=== PATIENT | female | born 1970 | race Caucasian/White ===

== ENCOUNTER 2021-05-15 00:18 | Day surgery (SDC) | payer OTHER, SELFPAY ==
[2021-05-03 14:28] VITALS: BMI 25.9
[2021-05-15 08:59] VITALS: BP 123/59; PULSE 90; RESP 16; TEMP 37.2; O2SAT 99; BMI 26.5
[2021-05-15] MEDS: LACTATED RINGERS 1,000 ML 150 ML IV CONT (09:11)
--- NOTE | 2021-05-15 09:15 | P.PNAN_ITS ---
Anes - Initial Pre Proc Eval Procedure: Operation Date: 05/15/21 10:00 Proposed Procedures p Screening Colonoscopy - Zoran Belcher MD Date/Time: 05/15/21 09:15 Surgeon: Zoran Belcher MD Pre Op Diagnosis: neoplasm screening Patient Data Age: 51 Gender: F Height: 1.7 m Weight: 76.9 kg Last Vital Signs Temp 37.2 C 05/15/21 08:59 Pulse 90 05/15/21 08:59 Resp 16 05/15/21 08:59 BP 123/59 L 05/15/21 08:59 Pulse Ox 99 05/15/21 08:59 Allergies Allergy/AdvReac Type Severity Reaction Status Date / Time No Known Allergies Allergy Verified 05/15/21 08:59 Home Medications Medication Instructions Recorded Confirmed Type estradiol 0.5 mg PO DAILY 05/03/21 05/03/21 History estradiol-norethindrone acet 1 tablet PO DAILY 05/03/21 05/03/21 History Patient hx anesthesia problems: none Family hx anesthesia problems: none Results Review: All pre-operative results and documents have been reviewed as part of the pre-operative evaluation. [facility] Past Medical History Medical History (Updated 05/15/21 @ 09:17 by Davin Palmer MD) Overweight Surgical History Surgical History (Updated 05/15/21 @ 09:17 by Davin Palmer MD) H/O: hysterectomy Social History Social History Smoking status: Former smoker Substance use type: does not use Spiritual care concerns: No Anes - Eval Final PreProcedure Day of Procedure 05/15/21 09:15 Patient weight: overweight Heart: regular rate and rhythm Lungs: clear to auscultation Airway: Mallampati scale class 1 Neurological: alert and oriented Last oral intake: >/= 8 hours ASA classification: II Emergent: no Anesthetic plan: proceed Anesthesia type and monitoring: general GIVS and standard monitoring Results Review: All pre-operative results and documents have been reviewed as part of the pre-operative evaluation. Informed Consent: The patient's anesthetic plan and its attendant risks and benefits were discussed with the patient/family/POA. Questions were solicited and answers provided to the satisfaction of the patient/family/POA.
--- NOTE | 2021-05-15 09:48 | PM.HPGS ---
History of Present Illness History of Present Illness Consent: Risks, benefits, and alternatives have been discussed and questions answered. Patient agrees to proceed with procedure. Chief complaint: neoplasm screening Narrative: Brenda Cullen is a 51 year old female here for first screening colonoscopy Review of Systems Constitutional: Constitutional: Denies headache(s) and Denies weakness Eyes: Eyes: Denies blurry vision ENT: Reports Normal hearing present, Denies headache(s) and Denies neck pain Cardiovascular: Cardiovascular: Denies chest pain and Denies dyspnea Respiratory: Respiratory: Denies dyspnea Gastrointestinal: Gastrointestinal: Reports no additional gastrointestinal complaints Genitourinary: Genitourinary: Denies dysuria Musculoskeletal: Musculoskeletal: Denies neck pain Integumentary/Breasts: Skin/Breast: Denies dry skin Neurologic: Reports Normal hearing present, Denies headache(s) and Denies weakness Psychiatric: Psychiatric: Denies anxiety Endocrine: Endocrine: Denies change in body appearance Hematologic/Lymphatic: Hematologic/Lymphatic: Denies easy bleeding Allergic/Immunologic: Allergic/Immunologic: Denies urticaria PMFSH Past Medical History Medical History (Updated 05/15/21 @ 09:48 by Zoran Belcher MD) Colon cancer screening Overweight Surgical History Surgical History (Updated 05/15/21 @ 09:17 by Davin Palmer MD) H/O: hysterectomy Social History Social History Smoking status: Former smoker Substance use type: does not use Spiritual care concerns: No Meds Home Medications and Allergies Home Medications Medication Instructions Recorded Confirmed Type estradiol 0.5 mg PO DAILY 05/03/21 05/03/21 History estradiol-norethindrone acet 1 tablet PO DAILY 05/03/21 05/03/21 History Allergies Allergy/AdvReac Type Severity Reaction Status Date / Time No Known Allergies Allergy Verified 05/15/21 08:59 Vital Signs Vital Signs - 24 hr 05/15/21 08:59 Temperature 98.9 F Pulse Rate 90 Respiratory Rate 16 Blood Pressure 123/59 L Pulse Oximetry 99 Exam Const: General: comfortable and no acute distress HENMT: General nose exam: Normal nares present Eyes: General: appearance normal, both eyes and all related structures Neck: Neck: no JVD Resp: Auscultation: clear to auscultation bilaterally Cardio: Rate: regular rate Rhythm: regular rhythm GI: Inspection: non-distended GI Palp: Yes Soft to palpation Skin: General skin exam: normal color Neuro: General: gait normal Speech: normal speech Extrem: General: normal to inspection Psych: Mental Status: mental status grossly normal Assessment and Plan Assessment and plan (1) Colon cancer screening: Code(s): Z12.11 - Encounter for screening for malignant neoplasm of colon Status: Acute Assessment and Plan: colonoscopy
[2021-05-15 10:06] VITALS: BP 138/70; PULSE 94; RESP 23; O2SAT 100
[2021-05-15 10:16] VITALS: BP 130/75; PULSE 83; RESP 17; O2SAT 100
[2021-05-15 10:26] VITALS: BP 145/88; PULSE 85; RESP 19; O2SAT 100
== END 2021-05-15 10:48 | disposition home or self-care (01) ==
PROVIDERS: PCP Family Medicine Adolescent Medicine; Visit Provider Internal Medicine Gastroenterology
PROC: 0DJD8ZZ Inspection of Lower Intestinal Tract, Via Natural or Artificial Opening Endoscopic (ICD-10-PCS; CPT 45378; principal; 2021-05-15 10:00)
DX: Z12.11 Encounter for screening for malignant neoplasm of colon (principal); K57.30 Diverticulosis of large intestine without perforation or abscess without bleeding; K64.8 Other hemorrhoids; Z87.891 Personal history of nicotine dependence
CPT/HCPCS: 45378; J2704; J7120

== ENCOUNTER 2023-07-04 09:25 | Outpatient (CLI) | payer OTHER, SELFPAY ==
--- NOTE | ~2023-07-04 | XR_ITS ---
Supine and upright views of the abdomen Clinical history: Right kidney stone Findings: Bowel gas pattern is nonspecific. No evidence for obstruction or free air. Calcified gallst ones are present in the right upper quadrant. No definite renal stone seen. Osseous structures are in tact. Impression: Cholelithiasis. No definite renal stone evident. Reviewed, dictated and finalized at [facility]. Impression: Cholelithiasis. No definite renal stone evident.
== END 2023-07-04 09:26 | disposition home or self-care (01) ==
LOC: ANHIMG 09:31
PROVIDERS: PCP Family Medicine Adolescent Medicine; Visit Provider Urology
DX: N20.0 Calculus of kidney (principal); K80.20 Calculus of gallbladder without cholecystitis without obstruction
CPT/HCPCS: 74018